=== PATIENT | female | born 1985 | race Caucasian/White ===

== ENCOUNTER → 2016-05-17 | Outpatient (CLI) | payer BC ==
--- NOTE | 2016-05-17 16:28 | KCIC ---
PROCEDURE MR of the left ankle HISTORY Left ankle pain. Osteochondral defect. Pain for 15 years. COMPARISON None TECHNIQUE Standard multiplanar sequences are obtained. FINDINGS Peroneal tendons are intact. The anterior talofibular ligament, calcaneofibular ligament and posterior talofibular ligament demonstrate mild thickening compatible with scarring. No acute tear or laxity. Anterior inferior tibiofibular ligament is intact. Posterior tibial and flexor tendons are intact. Note is made of a large accessory navicular bone with minimal marrow edema along the synchondrosis. No acute medial ligament injury. The anterior tibial and extensor tendons are intact. The Achilles tendon is intact. No acute plantar fasciitis. Minimal fusiform thickening of the posterior central aponeurosis, may represent a small plantar fibroma. No aggressive bone destruction or acute fracture. No significant joint effusion. Osteochondral lesion at the medial talar dome measures 8 millimeter wide by 7 millimeter height by 14 mm AP. This has a chronic appearance without evidence of loose or unstable osteochondral fragment. There is some flattening of the subchondral bone surface here with a concave morphology. Only minimal edema within the bone. Mild medial and lateral soft tissue edema. IMPRESSION 1. Chronic appearing osteochondral defect at the medial talar dome. No evidence of unstable osteochondral lesion or fragment. 2. Mild scarring of the lateral ankle ligaments without acute injury. 3. Minimal fusiform thickening of the posterior plantar aponeurosis, compatible with scarring or a small fibroma. No acute plantar fasciitis. 4. 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 Electronically signed by: Chaparro Krueger MD (May 17, 2016 16:26:53)
--- NOTE | 2016-05-18 10:22 | KCIC ---
PROCEDURE MR of the left foot HISTORY Left foot pain. Accessory navicular bone. Diffuse pain for 15 years. COMPARISON None FINDINGS Accessory navicular bone identified. Mild degenerative spurring at the synchondrosis with minimal edema. No fluid at the synchondrosis. Bones are otherwise intact at the visualized foot. No acute sesamoiditis. No evidence of acute tendon disruption or significant tendon sheath fluid. Lisfranc ligament complex is intact. Tarsometatarsal joint alignment is intact. Mild subcutaneous edema. Minimal fusiform hypointense thickening of the posterior plantar aponeurosis. IMPRESSION 1. 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 2. Minimal fusiform thickening of the posterior plantar aponeurosis, compatible with scarring or small fibroma. 3. Note that dedicated MR left ankle is reported separately. Electronically signed by: Chaparro Krueger MD (May 18, 2016 10:20:23)
== END | disposition home or self-care (01) ==
LOC: KCIC MRI 15:21
PROVIDERS: ATTEND Orthopaedic Surgery Foot and Ankle Surgery
DX: M21.6X2 Other acquired deformities of left foot (principal); L90.5 Scar conditions and fibrosis of skin
CPT/HCPCS: 73718; 73721

== ENCOUNTER → 2016-05-27 | Outpatient (CLI) | payer BC ==
--- NOTE | 2016-05-27 13:58 | KCIC ---
PROCEDURE MRI lumbar spine without contrast. HISTORY Lumbago with left sciatica, progressive low back pain, leg pain on the left TECHNIQUE Multiplanar, multi sequential non contrast MR imaging was performed of the lumbar spine. COMPARISON None FINDINGS Lumbar vertebral body stature and AP alignment are maintained. There is a small hemangioma of the L5 intervertebral body. Intervertebral disc spaces are adequate. Conus terminates at L1. There are foci of fatty marrow replacement, less likely hemangiomas, of the anterior, inferior corners of T12 and T11. There is mild nonspecific edema of the posterior subcutaneous fat of the lower back. T11-12: There is a shallow protrusion in the right lateral recess with mild indentation upon the ventral thecal sac. Spinal canal and neural foramina are adequate. T12-L1: Neural foramina and spinal canal are adequate. L1-2: There is very shallow protrusion in the left lateral recess with mild indentation upon the ventral thecal sac. Spinal canal and neural foramina are overall adequate. L2-3: Neural foramina and spinal canal are adequate. L3-4: Spinal canal and neural foramina are adequate. There is mild facet degenerative change. L4-5: There is mild facet degenerative change. Negligible disc osteophyte complex results in minimal narrowing of the anterior, inferior left neural foramen, right neural foramen adequate. Spinal canal is overall adequate. L5-S1: Spinal canal and the neural foramina are adequate. IMPRESSION There is no significant lumbar spinal stenosis. There is minimal narrowing of the left L4-5 neural foramen by minimal disc osteophyte complex. Electronically signed by: Reuben Osei MD (May 27, 2016 13:56:27)
== END | disposition home or self-care (01) ==
LOC: KCIC MRI 12:16
PROVIDERS: ATTEND Orthopaedic Surgery Foot and Ankle Surgery
DX: M54.42 Lumbago with sciatica, left side (principal); R29.898 Other symptoms and signs involving the musculoskeletal system
CPT/HCPCS: 72148